=== PATIENT | female | born 1935 | race American Indian/Alaskan Native ===

== ENCOUNTER 2017-09-29 14:15 | Inpatient (IN) | payer MEDICARE, OTHER ==
[~2017-09-29] VITALS: Ht 158.8 cm; Wt 78.5 kg
[2017-09-29] MEDS ORDERED: ALBUTEROL/IPRATROPIUM 2.5MG/0.5MG, 3 ML NPPB ONE (15:00)
[2017-09-29] MEDS ORDERED: SODIUM CHLORIDE FLUSH 10ML SYR IVF ONE (15:00)
[2017-09-29 15:10] LABS: HEMATOCRIT 42.2 % (34.6-47.8); HEMOGLOBIN 14.4 g/dL (11.7-16.4); WHITE BLOOD COUNT 7.8 x10^3/uL (3.4-10)
[2017-09-29 15:21] LABS: ASPARTATE AMINO TRANSFERASE 31 U/L (15-37); BLOOD UREA NITROGEN 17 mg/dL (7-18)
[2017-09-29 15:23] LABS: IS PT STATUS REG ER OR PRE ER? YES
[2017-09-29] MEDS ORDERED: DONE10TA14 PO (15:53)
[2017-09-29] MEDS ORDERED: ALLO300T PO (15:53)
[2017-09-29] MEDS ORDERED: MEMA10TA PO (15:53)
[2017-09-29] MEDS ORDERED: HYDR12.53 PO (15:54)
[2017-09-29] MEDS ORDERED: SODIUM CHLORIDE 0.9% 1,000ML IVBOLUS ONE (16:00)
[2017-09-29] MEDS ORDERED: PIPERACILLIN/TAZO/PMX 4.5GM 100 ML IVPB ONE (16:00)
[2017-09-29] MEDS ORDERED: PIPERACILLIN/TAZO/PMX 3.375GM 50 ML ONE (16:20)
[2017-09-29] MEDS ORDERED: PROMETHAZINE 25 MG/ML, 1ML IM PRN (18:00)
[2017-09-29] MEDS ORDERED: BISACODYL 10 MG SUPP PR PRN (18:00)
[2017-09-29] MEDS ORDERED: DOCUSATE 100 MG CAPSULE PO PRN (18:00)
[2017-09-29] MEDS: HEPARIN 5,000 UNITS/ML, 1ML SQ SCH (18:00)
[2017-09-29] MEDS ORDERED: ACETAMINOPHEN 325 MG TABLET PO PRN (18:00)
[2017-09-29] MEDS ORDERED: POLYETHYLENE GLYCOL 17 GM PACKET PO PRN (18:00)
[2017-09-29 18:34] LABS: IS PT STATUS REG ER OR PRE ER? YES
[2017-09-29 20:00] VITALS: BP 130/67
[2017-09-29] MEDS ORDERED: ALBUTEROL SULFATE 2.5 MG/3 ML NPPB PRN (20:30)
[2017-09-29] MEDS: MEMANTINE 10MG TABLET PO SCH (20:42)
[2017-09-29] MEDS: SODIUM CHLORIDE 0.9% 1,000 ML IV SCH (20:44)
[2017-09-30 00:10] LABS: IS PT STATUS REG ER OR PRE ER? NO
[2017-09-30 01:03] VITALS: BP_SYST 129; BP_SYST 145; BP_SYST 146; BP_DIAS 72; BP_DIAS 76
[2017-09-30] MEDS: HEPARIN 5,000 UNITS/ML, 1ML SQ SCH ×3 (02:00→17:25)
[2017-09-30 05:53] LABS: HEMATOCRIT 39.4 % (34.6-47.8); HEMOGLOBIN 13.4 g/dL (11.7-16.4); WHITE BLOOD COUNT 6.3 x10^3/uL (3.4-10)
[2017-09-30] MEDS: SODIUM CHLORIDE 0.9% 1,000 ML IV SCH (06:08)
[2017-09-30 06:26] LABS: BLOOD UREA NITROGEN 16 mg/dL (7-18)
[2017-09-30 06:29] LABS: ASPARTATE AMINO TRANSFERASE 39 U/L (15-37)
[2017-09-30 06:35] VITALS: BP 100/62
[2017-09-30] MEDS: DONEPEZIL 10 MG TABLET PO SCH (08:34)
[2017-09-30] MEDS: MEMANTINE 10MG TABLET PO SCH ×2 (08:34→21:11)
[2017-09-30] MEDS: FLUTICASONE/VILANTEROL 200-25MCG/INH INH SCH (10:30)
[2017-09-30 12:12] VITALS: BP 100/53
[2017-09-30] MEDS ORDERED: ALPRazolam 1MG TABLET ONE (17:08)
[2017-09-30 18:45] VITALS: BP 113/64
[2017-10-01 00:10] VITALS: BP_SYST 114; BP_SYST 121; BP_SYST 136; BP_DIAS 72; BP_DIAS 74
[2017-10-01] MEDS: HEPARIN 5,000 UNITS/ML, 1ML SQ SCH ×2 (02:00→09:06)
[2017-10-01 04:39] VITALS: BP_SYST 100; BP_SYST 110; BP_SYST 118; BP_DIAS 64; BP_DIAS 69; BP_DIAS 73
[2017-10-01 06:34] VITALS: BP 116/67
[2017-10-01] MEDS: FLUTICASONE/VILANTEROL 200-25MCG/INH INH SCH (09:04)
[2017-10-01] MEDS: MEMANTINE 10MG TABLET PO SCH (09:04)
[2017-10-01] MEDS: DONEPEZIL 10 MG TABLET PO SCH (09:04)
[2017-10-01 09:56] LABS: BLOOD UREA NITROGEN 13 mg/dL (7-18)
[2017-10-01 12:06] VITALS: BP 104/61
[2017-10-01] MEDS ORDERED: FLUT1BLS INH (15:26)
== END 2017-10-01 22:30 | disposition home or self-care (01) | DRG 871 ==
LOC: ED 16:36 → EDIP 16:37 → ED 17:04 → 4WST 18:47 → 4EST 19:39
PROVIDERS: ADMIT Hospitalist; ATTEND Hospitalist
DX: A41.9 Sepsis, unspecified organism (principal); I26.99 Other pulmonary embolism without acute cor pulmonale; J15.9 Unspecified bacterial pneumonia; N17.9 Acute kidney failure, unspecified; C34.90 Malignant neoplasm of unspecified part of unspecified bronchus or lung; J44.0 Chronic obstructive pulmonary disease with (acute) lower respiratory infection; I50.9 Heart failure, unspecified; Z99.81 Dependence on supplemental oxygen; R65.20 Severe sepsis without septic shock; Z66 Do not resuscitate; F03.90 Unspecified dementia, unspecified severity, without behavioral disturbance, psychotic disturbance, mood disturbance, and anxiety; M10.9 Gout, unspecified; Z91.19 Patient's noncompliance with other medical treatment and regimen; Z87.891 Personal history of nicotine dependence; Z79.899 Other long term (current) drug therapy
CPT/HCPCS: 36415; 71010; 78582; 80048; 80053; 81003; 83605; 83735; 83880; 84100; 84145; 84443; 84484; 85025; 87040; 93005; 93306; 93970; 96365; 96366; J2543; A9540; A9558; C9898; J7030